=== PATIENT | male | born 1985 | race Caucasian/White ===

== ENCOUNTER 2017-05-01 03:41 | Inpatient (IN) | payer OTHER ==
[~2017-05-01] VITALS: Ht 180.3 cm; Wt 79.4 kg
[2017-05-01 03:46] VITALS: BP 145/90
--- NOTE | 2017-05-01 03:50 | NUR ---
TO LOBBY, KAYLEIGH STUBBS, A/W BED, JUAN CARLOS NOTED
--- NOTE | 2017-05-01 04:35 | NUR ---
COMPLAINED OF CHEST PAIN, ERMD NOTED, EKG ORDERED
--- NOTE | 2017-05-01 05:45 | NUR ---
31/M CAME IN W C/O SORE THROAT, RT EAR PAIN, FLU S/SX X 3 DAYS. PT STATES HX OF TONSILITIS X 3 YRS AGO. REPORTS NAUSEA, DENIES VOMITING, DENIES FEVER/CHILLS, DENIES SOB/CP AT THIS TIME. PMH: LONNIE/RUPALI
--- NOTE | 2017-05-01 07:10 | NUR ---
Pt report given to YONAS MENDEZ. Transfer of care at this time.
--- NOTE | 2017-05-01 07:27 | NUR ---
Dr. Mansfield evaluating patient at bedside.
[2017-05-01] MEDS ORDERED: NACL 0.9% 2,000 ML IV ONE (07:30)
[2017-05-01] MEDS ORDERED: DEXAMETHASONE 10 MG/ML VIAL IVP ONE (07:30)
[2017-05-01] MEDS ORDERED: CLINDAMYCIN 600 MG in DEXTROSE 5% 50 ML IV ONE (07:30)
[2017-05-01] MEDS ORDERED: KETOROLAC 30 MG/ML VIAL IVP ONE (07:30)
[2017-05-01] MEDS ORDERED: CLINDAMYCIN 600 MG/4 ML VIAL ONE (07:55)
[2017-05-01 08:24] LABS: HEMATOCRIT 46.1 % (36-52); HEMOGLOBIN 15.1 g/dL (12.0-18.0); MEAN CORPUSCULAR HEMOGLOBIN 28 pg (27-31); MEAN CORPUSCULAR HGB CONC 33 g/dL (33-37); MEAN CORPUSCULAR VOLUME 85 fL (80-94); PLATELET COUNT (AUTO) 261 K/uL (140-450); RED BLOOD CELL COUNT(AUTO) 5.44 MIL/uL (4.20-6.10); WHITE BLOOD COUNT (AUTO) 20.7 K/uL (4.8-10.8)
[2017-05-01 08:43] LABS: BASOPHILS % (MANUAL) 0 % (0-2); EOSINOPHILS % (MANUAL) 3 % (0-4); LYMPHOCYTES % (MANUAL) 6 % (20-46); MONOCYTES % (MANUAL) 4 % (5-12)
[2017-05-01 08:45] LABS: ANION GAP 10.1 (8-16); CARBON DIOXIDE 29.7 mmol/L (21-32); POTASSIUM 3.8 mmol/L (3.5-5.1)
[2017-05-01 08:52] LABS: ALBUMIN 3.7 g/dL (3.4-5.0); TOTAL BILIRUBIN 0.7 mg/dL (0.0-1.0)
[2017-05-01 09:05] LABS: PROTHROMBIN TIME 10.4 secs (10.8-13.4)
--- NOTE | 2017-05-01 09:38 | NUR ---
PT TAKEN OFF THE UNIT FOR CT SCAN OF THE NECK VIA GURNEY BY ACCOUNTS SPECIALIST
[2017-05-01] MEDS ORDERED: LORazepam 2 MG/ML VIAL IVP ONE (10:00)
--- NOTE | 2017-05-01 10:35 | NUR ---
PT TAKEN OFF THE UNIT FOR CT OF THE NECK VIA GURNEY BY DIETARY SUPERVISOR ACCOMPANIED BY PT'S MOTHER
[2017-05-01] MEDS ORDERED: BENZOCAINE/BUTAMBEN/TETRACAINE 56 GM CAN TP ONE (12:10)
[2017-05-01] MEDS: NACL 0.9% 1,000 ML IV SCH (13:24)
[2017-05-01] MEDS ORDERED: ACETAMINOPHEN 325 MG TAB PO PRN (13:25)
[2017-05-01] MEDS ORDERED: ONDANSETRON 4 MG/2 ML VIAL IVP PRN (13:25)
[2017-05-01] MEDS ORDERED: CLINDAMYCIN 600 MG in DEXTROSE 5% 50 ML IV SCH (14:00)
--- NOTE | 2017-05-01 14:10 | NUR ---
PATIENT REPORT GIVEN AT BEDSIDE, PATIENT IS AAOX4 AND SHOWS NO S/S OF ACUTE DISTRESS ON ROOM AIR. ON TELE MONITOR. NOTED SWELLING ON THE RIGHT SIDE OF NECK; OTHERWISE, SKIN IS INTACT. IV NOTED ON THE R AC. PATIENT DENIES PAIN AT THIS TIME. DISCUSSED POC WITH PATIENT AND FAMILY AND THEY VERBALIZED UNDERSTANDING. THE BED IS IN LOW POSITION WITH CALL LIGHT WITHIN REACH.
--- NOTE | 2017-05-01 14:15 | NUR ---
Patient will be admitted to care of DR WATKINS. Admited to TELE. Will go to room 106A. Belongings list completed. Report to ANDREA ESCAMILLA.
--- NOTE | 2017-05-01 14:55 | NUR ---
ADMINISTERED SCHEDULED MEDICATION, IV ABX INFUSING WELL.
[2017-05-01 15:18] VITALS: BP 124/81
[2017-05-01 15:36] LABS: CHOL/HDL RATIO 2.1 (1-4.5); FREE T4 (FREE THYROXINE) 0.95 ng/dL (0.76-1.46); PHOSPHORUS 2.7 mg/dL (2.5-4.9); THYROID STIMULATING HORMONE 0.93 uIU/mL (0.34-3.74)
[2017-05-01 16:00] VITALS: BP 124/81
--- NOTE | 2017-05-01 16:45 | NUR ---
PATIENT SHOWS NO S/S OF ACUTE DISTRESS ON ROOM AIR. ALL NEEDS MET AT THIS TIME. BED IN LOW POSITION WITH CALL LIGHT WITHIN REACH.
--- NOTE | 2017-05-01 18:00 | NUR ---
PATIENT IS SLEEPING AND EASILY AROUSABLE, PATIENT'S NEEDS MET AT THIS TIME. BED IN LOW POSITION WITH CALL LIGHT WITHIN REACH.
--- NOTE | 2017-05-01 18:30 | NUR ---
PATIENT DENIES TROUBLE SWALLOWING, PATIENT EATING DINNER WITHOUT DIFFICULTY AND TOLERATING DIET WELL.
--- NOTE | 2017-05-01 19:10 | NUR ---
GAVE PATIENT REPORT AT BEDSIDE TO NIGHT NURSE. PATIENT ENDORSED IN STABLE CONDITION.
--- NOTE | 2017-05-01 19:15 | NUR ---
RECEIVED PT FROM CLAU MENDEZ PT IS AAOX4 AMBULATORY IV ON RT AC INFUSING WELL ON TELEMETRY ST HR 101 PT TOLERATED WELL LIQUID TO DRINK, ON LEFT LOWER EXTREMITY PT HAS A ANKLE MONITOR INITIAL ASSESSMENT DONE
[2017-05-01 20:00] VITALS: BP 128/72
--- NOTE | 2017-05-01 20:30 | NUR ---
THROAT SWAB TAKEN AND SENT TO LAB ORDER
[2017-05-01] MEDS: HYDROcodone/APAP 7.5/325 MG 1 TAB PO PRN (20:37)
[2017-05-01] MEDS: DOCUSATE SODIUM 100 MG GELCAP PO SCH (20:39)
[2017-05-02] VITALS: BP 131/79
[2017-05-02] MEDS: CLINDAMYCIN 600 MG in DEXTROSE 5% 50 ML IV SCH ×5 (00:11→23:08)
[2017-05-02] MEDS: NACL 0.9% 1,000 ML IV SCH ×4 (00:12→19:15)
--- NOTE | 2017-05-02 00:38 | NUR ---
PT SLEEPING WELL NOT DISTRESS NOTED DENIES ANY PAIN AT THIS TIME ON TELEMETRY SR
[2017-05-02 04:00] VITALS: BP 135/75
--- NOTE | 2017-05-02 04:00 | NUR ---
PT DID NOT COMPLAINTS OF ANY PAIN ON TELEMETRY SR, IV ON RT AC INFUSING WELL DENIES ANYK KPAIN AT THIS TIME
[2017-05-02] MEDS: HYDROcodone/APAP 7.5/325 MG 1 TAB PO PRN ×5 (05:28→23:05)
--- NOTE | 2017-05-02 05:30 | NUR ---
URINE SENT TO [facility]
[2017-05-02 06:58] LABS: HEMATOCRIT 45.8 % (36-52); HEMOGLOBIN 15.1 g/dL (12.0-18.0); MEAN CORPUSCULAR HEMOGLOBIN 28 pg (27-31); MEAN CORPUSCULAR HGB CONC 33 g/dL (33-37); MEAN CORPUSCULAR VOLUME 85 fL (80-94); PLATELET COUNT (AUTO) 278 K/uL (140-450); RED BLOOD CELL COUNT(AUTO) 5.41 MIL/uL (4.20-6.10); RED CELL DISTRIBUTION WIDTH 12.8 % (11.6-13.7); WHITE BLOOD COUNT (AUTO) 17.8 K/uL (4.8-10.8)
[2017-05-02 07:13] LABS: ANION GAP 12.2 (8-16); CARBON DIOXIDE 28.9 mmol/L (21-32); CREATININE 0.8 mg/dL (0.7-1.3); POTASSIUM 4.1 mmol/L (3.5-5.1)
[2017-05-02 07:13] LABS: APPEARANCE,URINE CLEAR (CLEAR); BILIRUBIN,URINE NEGATIVE (NEGATIVE); BLOOD, URINE TRACE-I (NEGATIVE); COLOR,URINE YELLOW (YELLOW); LEUKOCYTE ESTERASE ,URINE NEGATIVE (NEGATIVE); NITRITE, URINE NEGATIVE (NEGATIVE); UGLUCOSE TRACE (NEGATIVE)
--- NOTE | 2017-05-02 07:15 | NUR ---
RECEIVED REPORT FROM MANAGEMENT PROFESSIONALS RN AT BEDSIDE FOR CONTINUITY OF CARE. PATIENT AOX4, RESTING COMFORTABLY. NO SIGNS OF DISTRESS OR SOB NOTED. BREATHING EVEN AND UNLABORED. UPDATED BOARD. PATIENT ON ROOM AIR, HAS IV ON R AC #20G WITH NS INFUSING AT 125 ML/HR. PATIENT IS AMBULATORY. SAFETY PRECAUTIONS IN PLACE, BED IN LOWEST SETTING, CALL LIGHT WITHIN REACH. WILL CONTINUE TO MONITOR PATIENT.
[2017-05-02 07:18] LABS: PHOSPHORUS 3.5 mg/dL (2.5-4.9)
[2017-05-02 07:28] LABS: BARBITURATE, URINE NEG. ng/ml (NEG <=200); BENZODIAZEPINE, URINE NEG. ng/mL (NEG <=200); CANNABINOID, URINE NEG. ng/mL (NEG <=50); COCAINE, URINE NEG. ng/mL (NEG <=300); OPIATE, URINE NEG. ng/mL (NEG <=2000); PHENCYCLIDINE SCREEN,URINE NEG. ng/mL (NEG <=25)
[2017-05-02 07:54] LABS: RBC,URINE 0-5 (RARE) /HPF (0-5)
[2017-05-02 07:56] LABS: LYMPHOCYTES % (MANUAL) 12 % (20-46); MONOCYTES % (MANUAL) 6 % (5-12)
[2017-05-02 08:00] VITALS: BP 127/88
--- NOTE | 2017-05-02 08:41 | NUR ---
PATIENT HAS BEEN SCREENED AND CATEGORIZED HIGH NUTRITION RISK. PATIENT WILL BE SEEN IN 1-2 DAYS. 05/01/17-05/02/[address]
[2017-05-02] MEDS: DOCUSATE SODIUM 100 MG GELCAP PO SCH ×2 (08:55→21:43)
[2017-05-02] MEDS: LACTOBACILLUS RHAMNOSUS GG 1 EACH CAP PO SCH (08:56)
--- NOTE | 2017-05-02 08:57 | NUR ---
ADMINISTERED MORNING MEDICATIONS. PATIENT TOLERATED THEM WELL. NO SIGNS OF DISTRESS NOTED. PATIENT C/O PAIN D/T THROAT ABSCESS. EXPLAINED TO PT ABOUT NEXT NORCO PRN SCHEDULE. PT VERBALIZED UNDERSTANDING. WILL MEDICATE WHEN NORCO IS DUE. SAFETY PRECAUTIONS IN PLACE, WILL CONTINUE TO MONITOR PATIENT.
--- NOTE | 2017-05-02 11:15 | NUR ---
PATIENT SLEEPING COMFORTABLY. NO SIGNS OF DISTRESS OR SOB NOTED. SAFETY PRECAUTIONS IN PLACE, CALL LIGHT WITHIN REACH. WILL CONTINUE TO MONITOR PATIENT.
--- NOTE | 2017-05-02 14:55 | NUR ---
PT C/O PAIN IN THROAT D/T THROAT ABSCESS, 10/02. NORCO PRN GIVEN. PATIENT SHOWS NO SIGNS OF DISTRESS OR SOB. MOTHER IS AT BEDSIDE. SAFETY PRECAUTIONS IN PLACE, CALL LIGHT WITHIN REACH. WILL CONTINUE TO MONITOR PATIENT.
--- NOTE | 2017-05-02 15:57 | NUR ---
05/02/2017 RD INITIAL ASSESSMENT COMPLETED PLEASE REFER TO NUTRITION ASSESSMENT UNDER CARE ACTIVITY FOR ESTIMATED NUTRITIONAL NEEDS. 1.CONTINUE WITH FULL LIQUID DIET MEDICALLY APPROPRIATE 2.ADVANCE TO REGULAR DIET WHEN PT IS ABLE TO TOLERATE REGULAR TEXTURES. 3.RD TO FOLLOW-UP IN 3-5 DAYS PATIENT IS MODERATE RISK. PRADEEP BERRY RD
[2017-05-02 16:01] VITALS: BP 133/72
--- NOTE | 2017-05-02 17:00 | NUR ---
PT VISITING W/ FRIEND. PT HAS NO COMPLAINTS AT THIS TIME. THE ICE CHIPS HELPED WITH THE SORE THROAT. ASKED FOR ANOTHER CUP OF ICE. GAVE IT TO PT. WILL CONTINUE TO MONITOR PT.
--- NOTE | 2017-05-02 18:30 | NUR ---
PATIENT RESTING, NO S/SX OF DISTRESS OR SOB NOTED. SAFETY PRECAUTIONS IN PLACE. WILL CONTINUE TO MONITOR PATIENT.
--- NOTE | 2017-05-02 19:16 | NUR ---
ENDORSED PT TO THE [employer] INSTRUMENT MAKER NURSE AT BEDSIDE FOR CONTINUITY OF CARE. PT IN STABLE CONDITION. REQUESTED MED MEDICATION FOR SORE THROAT. ADMINISTERED AND PT TOLERATED WELL.
--- NOTE | 2017-05-02 19:55 | NUR ---
PT'S MOTHER ROBERT CALLED ON THE PHONE AND SAID SHE JUST TALK TO HER SON AND SHE SAID THAT HE FEELS VERY ANXIOUS AND REQUESTING IF HE CAN HAVE SOMETHING TO CALM HIM DOWN, WENT TO PT'S ROOM, PT SLEEPING, EASILY AROUSABLE, PT SAID "IM JUSTIN", PT CALM AT THIS TIME, DENIES ANY PAIN, PASSED THE PHONE TO SON AND TALKED TO HIS MOM, PT WENT BACK TO SLEEP AFTER HANGING UP, ALL NEEDS ATTENDED.
--- NOTE | 2017-05-02 21:45 | NUR ---
DUE PO MEDICATION TAKEN, VERBALIZED STILL HAVING PAIN WHEN SWALLOWING, MONITORED CLOSELY.
[2017-05-03] VITALS: BP 140/90
--- NOTE | 2017-05-03 | NUR ---
PT SLEEPING, MEDICATED EARLIER FOR PAIN, EASILY AROUSABLE, VITAL SIGNS STABLE, IV ANTIBIOTIC INFUSING WELL, NO RESP DISTRESS NOTED, CONTINUE TO MONITOR CLOSELY.
--- NOTE | 2017-05-03 02:28 | NUR ---
PT AWAKE COMPLAINING HIS THROAT IS CLOSING UP, PT ABLE TO VERBALIZED, NO DIFFICULTY OF BREATHING NOTED, DR RIVERA CHECKED THE PT, WITH NEW ORDERS, PT PROVIDED WITH WARM SALT WATER TO GARGLE AND SPIT IT OUT PRN, PT COMPLIANT, WILL GIVE BENADRYL 1 DOSE IVP ORDERED.
[2017-05-03] MEDS ORDERED: diphenhydrAMINE 50 MG/ML VIAL IVP SCH (02:30)
[2017-05-03] MEDS: HYDROcodone/APAP 7.5/325 MG 1 TAB PO PRN ×3 (02:58→12:25)
--- NOTE | 2017-05-03 03:02 | NUR ---
BP-138/92, HR-80, SAT-99% ON ROOM AIR, NO DISTRESS NOTED, NORCO GIVEN FOR THROAT PAIN, STILL WITH PAIN WHEN SWALLOWING MEDS, NO N/V NOTED, MONITORED CLOSELY, MOTHER AT BEDSIDE.
[2017-05-03] MEDS: NACL 0.9% 1,000 ML IV SCH (04:18)
[2017-05-03] MEDS: CLINDAMYCIN 600 MG in DEXTROSE 5% 50 ML IV SCH ×2 (05:12→12:26)
--- NOTE | 2017-05-03 05:21 | NUR ---
PT SLEEPING, NO SIGNS OF RESP DISTRESS, DUE IV ANTIBIOTIC ADMINISTERED, MONITORED CLOSELY.
--- NOTE | 2017-05-03 07:10 | NUR ---
PT SLEEPING, NO SIGNS OF DISTRESS, REPORT GIVEN TO [place] RN FOR CONTINUITY OF CARE.
--- NOTE | 2017-05-03 07:11 | NUR ---
RECEIVED REPORT FROM GUILLOTINE TRIMMER RN AT BEDSIDE FOR CONTINUITY OF CARE. PATIENT SLEEPING. UPDATED THE BOARD. NO SIGNS OF DISTRESS NOTED. IV SITE PATENT AND INTACT, IV FLUIDS RUNNING AT 125 ML/HR. SAFETY PRECAUTIONS IN PLACE, WILL CONTINUE TO MONITOR PATIENT.
[2017-05-03 07:55] LABS: BASOPHILS # (AUTO) 0.3 K/uL (0.00-0.22); EOSINOPHILS # (AUTO) 0.1 K/uL (0-0.4); EOSINOPHILS % (AUTO) 0.9 % (0.0-4.0); HEMATOCRIT 44.8 % (36-52); HEMOGLOBIN 14.6 g/dL (12.0-18.0); LYMPHOCYTES % (AUTO) 13.2 % (20.5-51.1); MEAN CORPUSCULAR HEMOGLOBIN 28 pg (27-31); MEAN CORPUSCULAR HGB CONC 33 g/dL (33-37); MEAN CORPUSCULAR VOLUME 86 fL (80-94); MONOCYTES # (AUTO) 1.3 K/uL (0.8-1.0); MONOCYTES % (AUTO) 8.5 % (1.7-9.3); NEUTROPHILS # (AUTO) 11.5 K/uL (1.8-7.7); NEUTROPHILS % (AUTO) 75.4 % (42.2-75.2); PLATELET COUNT (AUTO) 248 K/uL (140-450); RED BLOOD CELL COUNT(AUTO) 5.22 MIL/uL (4.20-6.10); RED CELL DISTRIBUTION WIDTH 13.3 % (11.6-13.7); WHITE BLOOD COUNT (AUTO) 15.2 K/uL (4.8-10.8)
[2017-05-03 08:00] VITALS: BP 145/91
[2017-05-03] MEDS: DOCUSATE SODIUM 100 MG GELCAP PO SCH (08:03)
[2017-05-03] MEDS: LACTOBACILLUS RHAMNOSUS GG 1 EACH CAP PO SCH (08:03)
--- NOTE | 2017-05-03 08:06 | NUR ---
ADMINISTERED MORNING MEDICATIONS AND NORCO PRN FOR THROAT PAIN. PATIENT TOLERATED THEM WELL. PATIENT CURRENTLY EATING HIS FULL LIQUID BREAKFAST. NO S/SX OF DISTRESS OR SOB NOTED. SAFETY PRECAUTIONS IN PLACE. WILL CONTINUE TO MONITOR PATIENT.
[2017-05-03 08:29] LABS: ANION GAP 12.7 (8-16); CREATININE 0.7 mg/dL (0.7-1.3); POTASSIUM 3.7 mmol/L (3.5-5.1)
[2017-05-03 08:54] LABS: MAGNESIUM 1.7 mg/dL (1.8-2.4); PHOSPHORUS 3.2 mg/dL (2.5-4.9)
--- NOTE | 2017-05-03 10:00 | NUR ---
PATIENT SLEEPING. NO SIGNS OF DISTRESS NOTED. SAFETY PRECAUTIONS IN PLACE. WILL CONTINUE TO MONITOR PATIENT.
[2017-05-03] MEDS ORDERED: CLIN300C2 PO (11:14)
[2017-05-03] MEDS ORDERED: LACT10CA PO (11:14)
[2017-05-03] MEDS ORDERED: IBUP-2213 PO (11:32)
[2017-05-03] MEDS ORDERED: MAGNESIUM OXIDE 400 MG TAB PO SCH (12:00)
--- NOTE | 2017-05-03 13:00 | NUR ---
PATIENT'S MOTHER AT BEDSIDE. DISCHARGE TEACHING WAS GIVEN, PATIENT VERBALIZED UNDERSTANDING. IV REMOVED, CANNULA INTACT. ID BAND CUT. PATIENT IS GATHERING HIS BELONGINGS AND WILL TELL RN WHEN HE IS READY TO LEAVE.
--- NOTE | 2017-05-03 13:30 | NUR ---
PATIENT LEFT FLOOR BY WHEELCHAIR, ACCOMPANIED BY HIS MOTHER. PATIENT IN STABLE CONDITION.
--- NOTE | 2017-05-03 17:54 | NUR ---
REVIEW. ER REPORT, H&P , PROGRESS NOTE AND DISCHARGE SUMMARY FAXED TO [facility] [phone] PHONE KEELEY [phone]
== END 2017-05-03 13:30 | disposition home or self-care (01) | DRG 113 ==
LOC: MED 03:41 → MTU 13:35
PROVIDERS: ADMIT Family Medicine; ATTEND Family Medicine
DX: J03.90 Acute tonsillitis, unspecified (principal); G92 Toxic encephalopathy; E83.42 Hypomagnesemia; F15.10 Other stimulant abuse, uncomplicated
CPT/HCPCS: 36415; 70491; 71045; 80048; 80053; 80305; 81001; 83036; 83605; 83735; 83880; 84100; 84439; 84443; 84484; 85025; 85610; 85730; 87040; 87081; 87086; 96365; 96375; 99285; J1100; J1200; J1885; J2060; J3490; J7030; J7060; Q0092; Q9967

== ENCOUNTER 2017-06-06 17:41 | Emergency (ER) | payer SELFPAY ==
[~2017-06-06 17:41] MED LIST: CLIN300C2 PO; IBUP-2213 PO; LACT10CA PO
--- NOTE | 2017-06-06 18:50 | NUR ---
CALLED TWICE AT THE LOBBY NO ANSWER; KIM
== END 2017-06-06 18:50 | disposition left against medical advice (07) ==
LOC: MED 17:41
DX: Z53.21 Procedure and treatment not carried out due to patient leaving prior to being seen by health care provider (principal)

== ENCOUNTER 2019-06-13 03:04 | Emergency (ER) | payer SELFPAY ==
[~2019-06-13] VITALS: Ht 180.3 cm; Wt 83.9 kg
[2019-06-13 03:10] VITALS: BP 132/80
--- NOTE | 2019-06-13 03:29 | NUR ---
Dr. Valencia examining patient.
[2019-06-13] MEDS ORDERED: ALBUTEROL SULFATE/IPRATROPIU 3 ML SOL IH ONE (03:45)
--- NOTE | 2019-06-13 03:54 | NUR ---
RT AT BEDSIDE.
--- NOTE | 2019-06-13 03:54 | NUR ---
FLU COLLECTED AND GIVEN TO SCRUB TECH.
--- NOTE | 2019-06-13 03:56 | NUR ---
C/O CHEST PAIN X 2-3 DAYS. RATES PAIN 8/10 AND DESCRIBES IT TIGHNESS AND IS NONRADIATING. LUNG SOUNDS ARE RONCHI BILAT UPPER LOBES. PT STATES THE CHEST PAIN HAPPENS WHEN HE COUGHS. PRODUCTIVE COUGH PRESENT. BODY ACHES PRESENT. NO RESP DISTRESS NOTED. NO USE OF ACCESSORY MUSCLE. A & O X4. STEADY GAIT. NKA. NO PMH.
--- NOTE | 2019-06-13 03:58 | NUR ---
XR AT BEDSIDE.
[2019-06-13 05:00] VITALS: BP 132/80
--- NOTE | 2019-06-13 05:00 | NUR ---
Patient discharged with v/s stable. Written and verbal after care instructions given and explained. Patient alert, oriented and verbalized understanding of instructions. Ambulatory with steady gait. All questions addressed prior to discharge. ID band removed. Patient advised to follow up with PMD. Rx of ALBUTEROL, GUAIATUSSIN, AND NAPROSYN given. Patient educated on indication of medication including possible reaction and side effects. Opportunity to ask questions provided and answered.
== END 2019-06-13 05:00 | disposition home or self-care (01) ==
LOC: MED 03:04
DX: J20.9 Acute bronchitis, unspecified (principal)
CPT/HCPCS: 71045; 87804; 94640; 99283; J7620; Q0092

== ENCOUNTER 2021-10-31 10:20 | Emergency (ER) | payer SELFPAY ==
[~2021-10-31] VITALS: Ht 180.3 cm; Wt 86.2 kg
[2021-10-31 10:29] VITALS: BP 151/111
--- NOTE | 2021-10-31 10:35 | NUR ---
PT AMB TO BED 3.
--- NOTE | 2021-10-31 10:38 | NUR ---
Pt coming from home ambulatory with steady gait. A&Ox4. Skin intact. VSS. Pt c/o having bilateral flank and testicle pain 9/10 since yesterday. No trauma. Pain is constant and radiates to knee. No chest pain and no sob. Denies n/v. NKA No known medical conditions. No surgeries.
[2021-10-31 10:42] VITALS: BP_DIAS 94
--- NOTE | 2021-10-31 11:13 | NUR ---
Ultrasound being done at bedside.
--- NOTE | 2021-10-31 11:21 | NUR ---
Mother called and updated given. Call back # Maryam
--- NOTE | 2021-10-31 11:43 | NUR ---
Dr. Wiggins at bedside examining pt.
[2021-10-31] MEDS ORDERED: KETOROLAC 60 MG/2 ML VIAL IM ONE (11:45)
[2021-10-31] MEDS ORDERED: ACET-8386 PO (12:04)
[2021-10-31] MEDS ORDERED: IBUP-2213 PO (12:04)
[2021-10-31 12:40] VITALS: BP_SYST 139
--- NOTE | 2021-10-31 12:40 | NUR ---
Patient discharged with v/s stable. Written and verbal after care instructions given and explained. Patient alert, oriented and verbalized understanding of instructions. Ambulatory with steady gait. All questions addressed prior to discharge. ID band removed. Patient advised to follow up with PMD. Rx of NORCO,IBU given. Patient educated on indication of medication including possible reaction and side effects. Opportunity to ask questions provided and answered.
== END 2021-10-31 12:40 | disposition home or self-care (01) ==
LOC: MED 10:20
DX: N50.812 Left testicular pain (principal); N50.811 Right testicular pain; F12.90 Cannabis use, unspecified, uncomplicated; Z79.1 Long term (current) use of non-steroidal anti-inflammatories (NSAID); Z79.2 Long term (current) use of antibiotics; Z79.899 Other long term (current) drug therapy
CPT/HCPCS: 76870; 81002; 96372; 99284; J1885; Q0092

== ENCOUNTER 2023-08-30 00:25 | Emergency (ER) | payer MEDICAID ==
[~2023-08-30] VITALS: Ht 180.3 cm; Wt 86.2 kg
[~2023-08-30 00:25] MED LIST changes: +ACET-8905 PO
[2023-08-30 00:41] VITALS: BP 138/79; PULSE 117; RESP 16; TEMP 98.2; O2SAT 98
[2023-08-30 02:22] VITALS: TEMP 98.2
[2023-08-30 03:19] LABS: ANION GAP 9.1 (8-16); BASOPHILS % (AUTO) 0.7 % (0.0-2.0); CALCIUM 8.7 mg/dL (8.5-10.1); CARBON DIOXIDE 31.7 mmol/L (21-32); CREATININE 1.1 mg/dL (0.6-1.3); EOSINOPHILS # (AUTO) 0.4 K/uL (0-0.4); EOSINOPHILS % (AUTO) 5.6 % (0.0-4.0); HEMATOCRIT 43.5 % (36-52); HEMOGLOBIN 14.7 g/dL (12.0-18.0); LYMPHOCYTES # (AUTO) 1.7 K/uL (2.0-11.5); MEAN CORPUSCULAR HEMOGLOBIN 29 pg (27-31); MEAN CORPUSCULAR HGB CONC 34 g/dL (33-37); MEAN CORPUSCULAR VOLUME 84.6 fL (80-94); MONOCYTES # (AUTO) 0.6 K/uL (0.8-1.0); MONOCYTES % (AUTO) 7.7 % (1.7-9.3); NEUTROPHILS # (AUTO) 4.6 K/uL (1.8-7.7); PLATELET COUNT (AUTO) 251 K/uL (140-450); POTASSIUM 3.8 mmol/L (3.5-5.1); RED BLOOD CELL COUNT(AUTO) 5.14 MIL/uL (4.20-6.10); RED CELL DISTRIBUTION WIDTH 14.8 % (11.6-13.7); WHITE BLOOD COUNT (AUTO) 7.3 K/uL (4.8-10.8)
[2023-08-30 03:21] VITALS: BP 123/92; PULSE 109; RESP 16; O2SAT 100
== END 2023-08-30 04:14 | disposition home or self-care (01) ==
LOC: MED 00:25
DX: K59.00 Constipation, unspecified (principal); R10.30 Lower abdominal pain, unspecified; Z79.1 Long term (current) use of non-steroidal anti-inflammatories (NSAID); Z79.2 Long term (current) use of antibiotics; Z79.899 Other long term (current) drug therapy
CPT/HCPCS: 36415; 80048; 85025; 87040; 93005; 99284